=== PATIENT | female | born 1985 | race Caucasian/White ===

== ENCOUNTER 2017-04-01 22:21 | Emergency (ER) | payer MEDICAID ==
[~2017-04-01] VITALS: Ht 175.3 cm; Wt 75.0 kg
[~2017-04-01 22:21] MED LIST: NAPR-576 PO; PERC5TAB12 PO
[2017-04-01 22:22] VITALS: BP 115/71; PULSE 72; RESP 16; TEMP 98.6; O2SAT 98
[2017-04-02] MEDS ORDERED: AUGM875T3 PO (00:35)
--- NOTE | 2017-04-02 00:40 | PD ---
HPI Chief Complaint: Lump, Cyst, Hernia Time Seen by Provider: 00:29 Travel History International Travel<30 days: No Contact w/Intl Traveler<30days: No Traveled to known affect area: No History of Present Illness HPI 31-year-old white female presents to emergency department with a 3-4 day history of recurring pilonidal abscess. Patient states that she has had this incised and drained several times in the past. The area has become increasingly painful. It just opened and started draining while she was in the examination room this evening. She denies any fever or chills. No nausea vomiting. No abdominal pain. Symptoms are moderate. No alleviating factors. PFSH Past Medical History Narrative Medical pILONIDAL CYST Diminished Hearing: No Medical other: Yes (pylonidal cyst drainage) Reproductive: Yes (HPV) Tetanus Vaccination: < 5 Years ?: Not LMP: 03/12/2017 : 2 Para: 2 Miscarriage: 0 : 0 Tubal Ligation: Yes Past Surgical History Section: Yes (x2) Cholecystectomy: Yes Social History Alcohol Use: No Tobacco Use: Yes (1 cigarette per day) Substance Use: No Allergies-Medications (Allergen,Severity, Reaction): Coded Allergies: clarithromycin (Unverified Allergy, Severe, "THROAT SWELLS AND HIVES", ) Uncoded Allergies: TAPE (Allergy, Severe, SWELLING AND RED, 05/15/11) WATERMELLON (Allergy, Severe, "ABDOMEN FEELS LIKE IT IS ON FIRE", 03/27/15) while she was Reported Meds & Prescriptions Reported Meds & Active Scripts Active Augmentin (Amoxicillin-Clavulanate) 875-125 Mg Tab 1 Tab PO BID Review of Systems Except as stated in HPI: all other systems reviewed are Neg Physical Exam Narrative GENERAL: This is a well-nourished, well-developed patient, in no apparent distress. Patient's examined with the nurse present. SKIN: Patient has a infected pilonidal cyst which is open and draining in the gluteal cleft. The abscess is decompressed. No involvement of the anus. HEAD: Atraumatic. Normocephalic. EYES: PERRL, EOMI, no discharge or injection. No scleral icterus. EARS: Clear NOSE: Nasal turbinates appear normal. THROAT: Mucosa pink and moist. Airway patent. NECK: Trachea midline. supple, moves head freely. LUNGS: Clear to auscultation. CV: Regular in rhythm. ABDOMEN: Soft nontender. EXT: No clubbing cyanosis or edema. Data Data Last Documented VS Vital Signs Date Time Temp Pulse Resp B/P (MAP) Pulse Ox O2 Delivery O2 Flow Rate FiO2 04/01/17 22:22 98.6 72 16 115/71 (86) 98 Room Air Orders Orders Amoxicil-Clavulanate (Augmentin) (04/02/17 00:45) MDM Medical Decision Making Medical Screen Exam Complete: Yes Emergency Medical Condition: Yes Medical Record Reviewed: Yes Differential Diagnosis MDM: High Differential diagnoses: Abscess, folliculitis, cellulitis, lymphangitis, abrasion, contact dermatitis Narrative Course Patient has an open draining pilonidal cyst. Incision and drainage is not indicated at this time. I have been able to decompress the abscess with direct pressure. Patient's given Augmentin 875 by mouth. Patient has declined any pain medications at this time. She states that she will take ibuprofen. This is an infected pilonidal cyst Diagnosis Primary Impression: Infected pilonidal cyst Patient Instructions: General Instructions Additional Instructions: Rest. Elevation. keep clean and dry. Sitz baths 3 times daily. Daily wound care with soap and water. Three Advil every 6 hours. Augmentin. Follow-up with a colorectal surgeon in the next 1-2 weeks. Need to have the area revised to resolve the cyst. Follow-up with a primary care doctor in one week. Return to the ER for any problems. Med/Other Pt SpecificInfo: Prescription(s) given, Wound Care Scripts Amoxicillin-Clavulanate (Augmentin) 875-125 Mg Tab 1 TAB PO BID for Infection, #20 TAB 0 Refills Prov: Yovani Flores MD 04/02/17 Disposition: 01 DISCHARGE HOME Condition: Stable Cain Turner Apr 02, 2017 00:40
[2017-04-02] MEDS ORDERED: AMOXICILLIN/CLAVULANATE K 875 MG TAB PO ONE (00:45)
== END 2017-04-02 01:05 | disposition home or self-care (01) ==
LOC: NEPD 22:21
DX: L05.01 Pilonidal cyst with abscess (principal); Z72.0 Tobacco use; Z87.42 Personal history of other diseases of the female genital tract
CPT/HCPCS: 99283